=== PATIENT | male | born 1985 ===

== ENCOUNTER 2017-11-05 15:21 | Emergency (ER) | payer OTHER ==
[~2017-11-05] VITALS: Ht 175.3 cm; Wt 68.0 kg
[~2017-11-05 15:21] MED LIST: OSEL75CA PO; TESSALON PERLE100 MG PO
== END 2017-11-05 21:36 | disposition home or self-care (01) ==
LOC: ER 15:21
DX: S42.031A Displaced fracture of lateral end of right clavicle, initial encounter for closed fracture (principal); V19.88XA Pedal cyclist (driver) (passenger) injured in other specified transport accidents, initial encounter; Y93.02 Activity, running; Y92.89 Other specified places as the place of occurrence of the external cause; Y99.8 Other external cause status